=== PATIENT | female | born 1945 | race Caucasian/White ===

== ENCOUNTER 2018-01-20 09:56 | Emergency (ER) | payer OTHER, MEDICARE ==
[~2018-01-20] VITALS: Ht 152.4 cm; Wt 56.2 kg
--- NOTE | 2018-01-20 11:06 | ED GI/GU/ABDOMINAL COMPLAINT ---
History of Present Illness General Chief Complaint: General Adult Stated Complaint: CHEST/ABD PAIN Source: patient Exam Limitations: no limitations Vital Signs & Intake/Output Vital Signs & Intake/Output Vital Signs Date Time Temp Pulse Resp B/P B/P Pulse O2 O2 Flow FiO2 Mean Ox Delivery Rate 01/20 1302 97.5 60 18 146/65 97 01/20 1203 96.9 79 18 132/79 96 Room Air Allergies Coded Allergies: Influenza Virus Vaccines (Severe, "SEVERE FLU" 01/20/18) Sulfa (Sulfonamide Antibiotics) (Severe, ANAPHYLAXIS 01/20/18) alprazolam (Severe, +SI 01/20/18) ceftriaxone (From ROCEPHIN) (Severe, ANAPHYLAXIS 01/20/18) duloxetine (From CYMBALTA) (Severe, +SI 01/20/18) hydroxychloroquine (Severe, ANAPHYLAXIS 01/20/18) lorazepam (Severe, +SI 01/20/18) paroxetine (From PAXIL) (Severe, +SI 01/20/18) shellfish derived (Severe, ANAPHYLAXIS 01/20/18) sulfamethoxazole (Severe, ANAPHYLAXIS 01/20/18) Antihistamines - Alkylamine (Intermediate, CONFUSION, VOMITING 01/20/18) biotin (Intermediate, CONFUSION 01/20/18) chlorpheniramine (Intermediate, CONFUSION 01/20/18) diphenhydramine (Intermediate, CONFUSION 01/20/18) esomeprazole (From NEXIUM) (Intermediate, MUSCLE PAIN 01/20/18) gabapentin (Intermediate, BODY HEAVINESS 01/20/18) gluten (Intermediate, DIARRHEA 01/20/18) hydromorphone (From DILAUDID) (Intermediate, CONFUSION 01/20/18) loratadine (Intermediate, CONFUSION 01/20/18) morphine (Intermediate, VOMITING 01/20/18) nortriptyline (Intermediate, ANXIETY 01/20/18) protein supplement (From SERA) (Intermediate, CONFUSION 01/20/18) rabeprazole (From ACIPHEX) (Intermediate, muscle spasm 01/20/18) topiramate (From TOPAMAX) (Intermediate, FLASHING LIGHTS 01/20/18) wheat (Intermediate, DIARRHEA 01/20/18) pregabalin (From LYRICA) (Mild, CRAMPING 01/20/18) milnacipran (From SAVELLA) (UNKNOWN 01/20/18) soy (UKNOWN 01/20/18) tetanus and diphtheria toxoids (UNKNOWN 01/20/18) Uncoded Allergies: DIURETICS (Intermediate, CONFUSION 01/20/18) Reconcile Medications [MAGIC MOUTHWASH] 10 ML PO TID PRN GASTRITIS EQUAL PARTS. 1:1:1 SWISH AND SWALLOW Metoclopramide HCl (Reglan) 10 MG TABLET 1 TAB PO 4 TIMES/DAY PRN NAUSEA 30 minutes before meals and bedtime Triage Note: C/O UPPER ABDOMINAL AND CHEST PAIN X 2 WEEKS, WORSE THE PAST 2 DAYS WITH CHRONIC CONSITPATION. STAETS SHE HAS A LOT OF MEDICAL PROBLEMS (SEE LIST). HAS "MANY DOCTORS" IN [place], BUT GOOGLED BEST DOCTORS IN [place] FOR GI PROBLEMS. HAS MULTIPLE COMPAINTS RE: HEARTBURN, ABDOMINAL PAIN, INTERMITTATN DIARRHEA AND CONSTIPATION, SOB, NAUSEA, WEAKNESS. Triage Nurses Notes Reviewed? yes ? N Is pt currently ? No Duration: getting worse Timing: recent history Quality/Severity: cramping, sharpness Severity Numbers: 8 Location: generalized abdomen Radiation: no radiation HPI: Patient is a 72-year-old female with a past medical history of fibromyalgia and chronic IBS-patient's table games floor supervisor is from [place], cervical cancer status post remote hysterectomy, hypothyroidism anxiety who presents emergency room with concerns of a two-week history of worsening generalized abdominal pain intermittent nausea and vomiting last episode was today no blood, patient also is complaining of chronic constipation however had a bowel movement yesterday and noted to be loose watery in production no blood no melena. Patient is complaining of burning sensation to substernal region of radiation of pain. Denies any fever chills cough arm pain jaw pain dysuria vaginal bleeding or discharge. Patient is complaining of generalized abdominal distention (Jony Lord) Past History Travel History Traveled to [place] past 21 day No Medical History Any Pertinent Medical History? see below for history Neurological: migraine Cardiovascular: NONE Respiratory: LUNG NODULES Gastrointestinal: GERD Musculoskeletal: fibromyalgia Endocrine: hypothyroidism Surgical History Surgical History: appendectomy, hysterectomy Psychosocial History What is your primary language Wolof Tobacco Use: Never used ETOH Use: denies use Family History Hx Contributory? No (Jony Lord) Review of Systems Review of Systems Constitutional: Reports: no symptoms. EENTM: Reports: no symptoms. Respiratory: Reports: see HPI. Denies: cough. Cardiovascular: Reports: see HPI. GI: Reports: see HPI, abdominal pain. Genitourinary: Reports: see HPI. Musculoskeletal: Reports: no symptoms. Skin: Reports: no symptoms. Neurological/Psychological: Reports: no symptoms. Hematologic/Endocrine: Reports: no symptoms. Immunologic/Allergic: Reports: no symptoms. All Other Systems: Reviewed and Negative (Jony Lord) Physical Exam Physical Exam General Appearance: no apparent distress, alert, comfortable Head: atraumatic Eyes: Bilateral: normal appearance. Ears, Nose, Throat, Mouth: hearing grossly normal Neck: normal inspection Respiratory: normal breath sounds Cardiovascular: regular rate/rhythm Gastrointestinal: normal bowel sounds, soft, tenderness Back: normal inspection Neurologic/Psych: no motor/sensory deficits, awake Skin: intact, normal color Core Measures ACS in differential dx? No Sepsis Present: No Sepsis Focused Exam Completed? No (Jony Lord) Progress Differential Diagnosis: AAA, AMI, appendicitis, biliary colic, bowel obstruction , colon cancer, cholecystitis, diverticulitis, endometritis, esophageal varices, gastritis, hepatitis, hernia, hemorrhoids, ischemic bowel, inflamm bowel dis, kidney stone, Jacquelin-Tom tear, ovarian cyst, ovarian torsion, pancreatitis, PID/cervicitis, peptic ulcer, PUD/GERD, perforated viscous, SBO, UTI/pyelo Plan of Care: Orders Procedure Date/time Status LACTIC ACID 01/20 1424 Active TROPONIN LEVEL 01/20 1124 Complete LIPASE 01/20 1124 Complete LACTIC ACID 01/20 1124 Complete COMPREHENSIVE METABOLIC PANEL 01/20 1124 Complete CBC WITHOUT DIFFERENTIAL 01/20 1124 Complete URINALYSIS 01/20 1050 Complete EKG 01/20 0957 Active Laboratory Tests 01/20/18 1135: Anion Gap 10, Estimated GFR > 60, BUN/Creatinine Ratio 17.5, Glucose 90, Lactic Acid 0.7, Calcium 9.2, Total Bilirubin 0.7, AST 21, ALT 24, Alkaline Phosphatase 55, Troponin I < 0.01, Total Protein 6.5, Albumin 4.0, Globulin 2.5, Albumin/ Globulin Ratio 1.6, Lipase 104, CBC w Diff NO MAN DIFF REQ, RBC 4.37, MCV 92.9, MCH 31.0, MCHC 33.3, RDW 13.3, MPV 7.8, Gran % 74.6, Lymphocytes % 18.5 L, Monocytes % 6.3, Eosinophils % 0.3, Basophils % 0.3, Absolute Granulocytes 5.1, Absolute Lymphocytes 1.3, Absolute Monocytes 0.4, Absolute Eosinophils 0, Absolute Basophils 0 01/20/18 1126: Urine Color STRAW, Urine Clarity CLEAR, Urine pH 6.0, Ur Specific Leslie <= 1.005, Urine Protein NEG, Urine Ketones NEG, Urine Nitrite NEG, Urine Bilirubin NEG, Urine Urobilinogen 0.2, Ur Leukocyte Esterase NEG, Ur Microscopic EXAM NOT REQUIRED, Urine Hemoglobin NEG, Urine Glucose NEG Patient on initial evaluation was resting comfortably in no apparent distress patient had multiple allergies to medications where she requested seemingly a GI cocktail and which she states that she's taken "a drink of numbing medications in the past " Patient has not followed up with her table games floor supervisor for the past 2 weeks for her symptoms Patient was reevaluated on multiple occasions resting comfortably at bedside no apparent distress reviewed all blood work and CT scan with patient patient was given all copies of Discussed with patient to follow up with an subtle findings of pulmonary nodules in which she has known hepatic cyst. Upon discharge patient looks well no apparent distress and will comply with discharge instructions and had no questions patient also had mild relief of symptoms with GI cocktail Diagnostic Imaging: Viewed by Me: CT Scan. Radiology Impression: no acute abnormality Initial ED EKG: normal p-waves, normal QRS complex, 79 BPM,NSR Comments: PATIENT: WAGNER CRUZ PRESENT AGE: 72 PATIENT ACCOUNT NO: [id number] : 45 LOCATION: [facility] ORDERING PHYSICIAN: Jony BACON SERVICE DATE: 01/20/18 EXAM TYPE: CAT - CT ABD & PELVIS W/O IV CONTRAS EXAMINATION: CT ABDOMEN AND PELVIS WITHOUT CONTRAST CLINICAL INFORMATION: Abdominal pain. COMPARISON: None. TECHNIQUE: Multidetector volumetric imaging was performed from the superior aspect of the liver through the pubic symphysis. Sagittal and coronal reformatted images were obtained on the technologist workstation. DLP: 231.86 mGy-cm. FINDINGS: LUNG BASES: There is a solid noncalcified 3 mm nodule in the anterobasal segment of the right lower lobe (series 2, image 4). No additional nodules or masses seen. No effusion is noted. Some linear atelectatic changes are noted in both lower lobes. LIVER, GALLBLADDER, AND BILIARY TREE: The liver is normal in size, shape, and attenuation. There are 4 low-attenuation masses seen in the left lobe of the liver, segments 4A, 4B, and 3, measuring between 0.9 cm and 3.4 x 3.0 cm, most consistent with multiple cysts. Small calcified granulomas are seen along the periphery of the right lobe of the liver. The liver is otherwise unremarkable. No biliary ductal dilatation is present. The gallbladder is unremarkable with no evidence of radiopaque gallstones, gallbladder wall thickening, or obvious pericholecystic inflammatory changes. PANCREAS: Unremarkable on noncontrast imaging. SPLEEN, ADRENAL GLANDS: Unremarkable on noncontrast imaging. KIDNEYS AND URETERS: The kidneys are normal in size, shape, and attenuation. No hydronephrosis, hydroureter, or calculi seen. No perinephric stranding. BLADDER: Unremarkable. PELVIC VISCERA: The patient is status post hysterectomy and presumably oophorectomy. No suspicious adnexal mass is seen. Multiple catrina are seen along the pelvic sidewall in the retroperitoneum. GASTROINTESTINAL TRACT: There is some fullness seen at the GE junction, consistent with a small hiatal hernia. A few scattered colonic diverticula are seen with no evidence of acute diverticulitis. The small and large bowel are unremarkable. The appendix is unremarkable. ABDOMINAL WALL: Tiny fat-containing umbilical hernia is seen. LYMPH NODES, VASCULAR: No abdominal or pelvic adenopathy or free fluid collection is seen. Calcified lymph node is seen in the left mid abdomen (series 2, image 37) Moderate atherosclerotic calcification of the abdominal aorta and arch vessels is seen. OSSEOUS STRUCTURES: There is moderate degenerative disc disease throughout the lumbar spine. No suspicious bone findings. IMPRESSION: 1. No acute intra-abdominal or pelvic process is seen. 2. Probably benign 3 mm noncalcified solid nodule in the right lower lobe. If the patient has no underlying risk factors, no additional follow-up is required. If the patient has underlying risk factors, no additional follow-up CT scan of the chest in 12 months can be considered. 3. Incidental findings of hepatic cysts, small calcified granulomas/calcified mesenteric lymph nodes, small hiatal hernia, tiny fat-containing umbilical hernia, and mild colonic diverticulosis are noted. DICTATED BY: Sagar BELL,Kalee Tate DATE/TIME DICTATED:01/20/181241 PRODUCTION LINE OPERATOR:NORRIS DATE/TIME TRANSCRIBED:01/20/181241 (Jony Lord) Departure Departure Disposition: HOME OR SELF CARE Condition: Stable Clinical Impression Primary Impression: Abdominal pain Secondary Impressions: Gastritis, Hepatic cyst, Nausea, Pulmonary nodule Referrals: Unknown (PCP/Family) Additional Instructions: As discussed please begin a 24-hour regimen of clear liquid and bland diet bowels, begin the prescription of Reglan for nausea and Magic mouthwash for your symptoms, on Monday please follow-up with your establish a table games floor supervisor, please provide them a CT scan of blood work provided to the emergency room. If symptoms worsen or if he develop new concerning symptom return to emergency room. Departure Forms: Customer Survey General Discharge Information Prescriptions: Current Visit Scripts [MAGIC MOUTHWASH] 10 ML PO TID PRN GASTRITIS #100 ML EQUAL PARTS. 1:1:1 SWISH AND SWALLOW Metoclopramide HCl (Reglan) 1 TAB PO 4 TIMES/DAY PRN NAUSEA #16 TAB 30 minutes before meals and bedtime (Jony Lord) PA/CAD PROGRAMMER Co-Sign Statement Statement: ED Attending supervision documentation- x I saw and evaluated the patient. I have also reviewed all the pertinent lab results and diagnostic results. I agree with the findings and the plan of care as documented in the PA's/CAD PROGRAMMER's documentation. [] I have reviewed the ED Record and agree with the PA's/CAD PROGRAMMER's documentation. [] Additions or exceptions (if any) to the PAs/CAD PROGRAMMER's note and plan are summarized below: [] (Elieser BELL,[place])
[2018-01-20 11:41] LABS: ABSOLUTE BASOPHIL COUNT 0 /CUMM (0.0-0.2); ABSOLUTE EOSINOPHIL COUNT 0 /CUMM (0.0-0.7); ABSOLUTE GRANULOCYTE CT 5.1 /CUMM (1.4-6.5); ABSOLUTE LYMPH COUNT 1.3 /CUMM (1.2-3.4); ABSOLUTE MONOCYTE COUNT 0.4 /CUMM (0.10-0.60); BASOPHIL % 0.3 % (0.0-2.0); EOSINOPHIL % 0.3 % (0-5); GRANULOCYTE % 74.6 % (42.2-75.2); HEMATOCRIT 40.6 % (37-47); MEAN CORPUSCULAR HGB CONC 33.3 G/DL (33.0-37.0); MEAN CORPUSCULAR VOLUME 92.9 FL (81.0-99.0); MEAN PLATELET VOLUME 7.8 FL (7.4-10.4); PLATELET COUNT 246 /CUMM (130-400); RBC DISTRIBUTION WIDTH 13.3 % (11.5-14.5); RED BLOOD CELL CT 4.37 /CUMM (4.20-5.40); WHITE BLOOD CELL COUNT 6.8 /CUMM (4.8-10.8)
--- NOTE | 2018-01-20 13:19 | CT SCAN REPORT ---
EXAMINATION: CT ABDOMEN AND PELVIS WITHOUT CONTRAST CLINICAL INFORMATION: Abdominal pain. COMPARISON: None. TECHNIQUE: Multidetector volumetric imaging was performed from the superior aspect of the liver through the pubic symphysis. Sagittal and coronal reformatted images were obtained on the technologist workstation. DLP: 231.86 mGy-cm. FINDINGS: LUNG BASES: There is a solid noncalcified 3 mm nodule in the anterobasal segment of the right lower lobe (series 2, image 4). No additional nodules or masses seen. No effusion is noted. Some linear atelectatic changes are noted in both lower lobes. LIVER, GALLBLADDER, AND BILIARY TREE: The liver is normal in size, shape, and attenuation. There are 4 low-attenuation masses seen in the left lobe of the liver, segments 4A, 4B, and 3, measuring between 0.9 cm and 3.4 x 3.0 cm, most consistent with multiple cysts. Small calcified granulomas are seen along the periphery of the right lobe of the liver. The liver is otherwise unremarkable. No biliary ductal dilatation is present. The gallbladder is unremarkable with no evidence of radiopaque gallstones, gallbladder wall thickening, or obvious pericholecystic inflammatory changes. PANCREAS: Unremarkable on noncontrast imaging. SPLEEN, ADRENAL GLANDS: Unremarkable on noncontrast imaging. KIDNEYS AND URETERS: The kidneys are normal in size, shape, and attenuation. No hydronephrosis, hydroureter, or calculi seen. No perinephric stranding. BLADDER: Unremarkable. PELVIC VISCERA: The patient is status post hysterectomy and presumably oophorectomy. No suspicious adnexal mass is seen. Multiple catrina are seen along the pelvic sidewall in the retroperitoneum. GASTROINTESTINAL TRACT: There is some fullness seen at the GE junction, consistent with a small hiatal hernia. A few scattered colonic diverticula are seen with no evidence of acute diverticulitis. The small and large bowel are unremarkable. The appendix is unremarkable. ABDOMINAL WALL: Tiny fat-containing umbilical hernia is seen. LYMPH NODES, VASCULAR: No abdominal or pelvic adenopathy or free fluid collection is seen. Calcified lymph node is seen in the left mid abdomen (series 2, image 37) Moderate atherosclerotic calcification of the abdominal aorta and arch vessels is seen. OSSEOUS STRUCTURES: There is moderate degenerative disc disease throughout the lumbar spine. No suspicious bone findings. IMPRESSION: 1. No acute intra-abdominal or pelvic process is seen. 2. Probably benign 3 mm noncalcified solid nodule in the right lower lobe. If the patient has no underlying risk factors, no additional follow-up is required. If the patient has underlying risk factors, no additional follow-up CT scan of the chest in 12 months can be considered. 3. Incidental findings of hepatic cysts, small calcified granulomas/calcified mesenteric lymph nodes, small hiatal hernia, tiny fat-containing umbilical hernia, and mild colonic diverticulosis are noted.
[2018-01-20] MEDS ORDERED: MAGIC MOUTHWASH PO (13:38)
[2018-01-20] MEDS ORDERED: REGLAN10 M1 PO (13:39)
== END 2018-01-20 13:56 ==
LOC: ERH 09:56
PROVIDERS: Physician Assistant
DX: K29.70 Gastritis, unspecified, without bleeding (principal); K76.89 Other specified diseases of liver; R91.1 Solitary pulmonary nodule
CPT/HCPCS: 74176; 81003; 93005; 93010; 96374; J2405